=== PATIENT | male | born 1990 | race Hispanic/Latino ===

== ENCOUNTER 2018-12-12 18:38 | Emergency (ER) | payer SELFPAY ==
[~2018-12-12] VITALS: Ht 162.6 cm; Wt 75.0 kg
[2018-12-12] MEDS ORDERED: KEFLEX500 M1 PO (18:58)
[2018-12-12 19:10] VITALS: BP 143/83
== END 2018-12-12 19:10 | disposition home or self-care (01) | DRG 605 ==
LOC: ED 18:38
DX: S81.831A Puncture wound without foreign body, right lower leg, initial encounter (principal); W26.8XXA Contact with other sharp object(s), not elsewhere classified, initial encounter; Y93.11 Activity, swimming; Y92.828 Other wilderness area as the place of occurrence of the external cause

== ENCOUNTER 2020-04-26 13:12 | Observation (INO) | payer SELFPAY ==
[~2020-04-26] VITALS: Ht 167.6 cm; Wt 76.7 kg
[~2020-04-26 13:12] MED LIST: KEFLEX500 M1 PO
--- NOTE | 2020-04-26 13:45 | NUR ---
PT AMBULATED TO ROOM IN NO DISTRESS
--- NOTE | 2020-04-26 14:30 | NUR ---
PT RESTING ON STRETCHER AND ADVISED OF CONTINUED WAIT. CALL LIGHT WITHIN REACH
[2020-04-26 14:49] LABS: HEMOGLOBIN 16.5 g/dl (14.0-18.0); IMMATURE GRANULOCYTES 0.3 % (0.0-5.0); MEAN CELL VOLUME 88.6 fL CALC (80.0-100.0); MEAN CORPUSCULAR HGB 29.8 pG CALC (26.0-32.0); MEAN CORPUSCULAR HGB CONC 33.7 g/dL CAL (32.0-36.0); NEUT# 10.85 thou/uL (1.82-7.42); RED BLOOD COUNT 5.53 mill/uL (4.70-6.10); RED CELL DISTRI WIDTH 12.7 % (11.5-15.5)
[2020-04-26 15:01] LABS: ALBUMIN 5.1 g/dL (3.2-5.0); ALKALINE PHOSPHATASE 89 u/l (38-126); ANION GAP 15 (6-22 (CALC)); BILIRUBIN, TOTAL 0.8 mg/dL (0.0-1.4); BUN 15 mg/dL (9-20); BUN/CREATININE RATIO 19 (12-20 (CALC)); CARBON DIOXIDE 24 mmol/l (22-30); CHLORIDE 103 mmol/l (95-108); CREATININE 0.8 mg/dL (0.7-1.3); GFR > 60 ML/MIN (>=60 (CALC)); GFR FOR AFR.AMER. > 60 ML/MIN (>=60 (CALC)); POTASSIUM 3.8 mmol/l (3.5-5.1); SGOT/AST 28 u/l (17-59); SODIUM 139 mmol/l (137-146); TOTAL PROTEIN 8.5 g/dL (6.3-8.2)
[2020-04-26 15:24] LABS: URINE BLOOD DIPSTICK TRACE-INTACT (NEGATIVE); URINE COLOR YELLOW; URINE GLUCOSE - DIPSTICK NEGATIVE (NEGATIVE); URINE KETONE 15 mg/dL (NEGATIVE); URINE LEUK ESTERASE NEGATIVE (NEGATIVE); URINE NITRITE - DIPSTICK NEGATIVE (Negative); URINE PROTEIN - DIPSTICK TRACE mg/dL (NEG-TRACE); URINE SPECIFIC GRAVITY >=1.030; URINE UROBILINOGEN - DIPSTICK 0.2 E.U./dL (0.2)
[2020-04-26 15:26] LABS: URINE BILIRUBIN - DIPSTICK NEGATIVE (NEGATIVE)
--- NOTE | 2020-04-26 15:38 | NUR ---
PT ON STRETCHER WATCHING TV. DENIES ANY NEEDS. [facility]
--- NOTE | 2020-04-26 16:40 | NUR ---
FAMILY AT BEDSIDE IS CONCERNED ABOUT WAIT. PLAN OF CARE DISCUSSED AND BOTH VERBALIZED UNDERSTANDING. POLICIES DISCUSSED WITH BOTH
--- NOTE | 2020-04-26 17:50 | NUR ---
GAVE REPORT TO ABENA
--- NOTE | 2020-04-26 17:59 | NUR ---
REPORT REC FROM PRASHANTH SANDRA
[2020-04-26 18:14] VITALS: BP 139/59
--- NOTE | 2020-04-26 18:18 | NUR ---
PT TRANSPORTED TO [facility] SURG STABLE AND IN NO DISTRESS VIA W/C. CARE ASSUMED TO ABENA. Admission Note Report Given to: ABENA Transported by: X Wheelchair Stretcher Transported with: X Nurse Transporter X Patent IV O2 Turret Press Operator Location: ICU X MS2
--- NOTE | 2020-04-26 18:19 | NUR ---
PT ARRIVED TO [place] VIA WC ACCOMPANIED BY PRASHANTH SANDRA. NO DISTRESS NOTED. A&O X3. PT C/O OF PAIN 2/10 IN RLQ. CLEAR BREATH SOUNDS UPON AUSCULTATION. PT STATES HE HAS NOT BEEN IN CONTACT WITH ANYONE THAT HAS C19. NO ACTIVE S/S OF C19. PT STATES HE DID HAVE NAUSEA ABD VOMITING PRIOR TO ARRIVING. PT MEETS FLU VACCINE CRITERIA BUT REFUSES AT THIS TIME. ORIENTED PT TO ROOM. LOLIS HURST OFFERED BUT REFUSED. CALL LIGHT IN REACH. CONTINUE TO MONITOR.
--- NOTE | 2020-04-26 21:25 | NUR ---
NOTIFIED PT OF SURGEON COMING IN TO TAKE PT TO OR THIS EVENING. PT ACKNOWLEDGED AND AGREED. PT COVID BIOFIRE SWAB ADMINISTERED AND DELIVERED TO LAB. PT REPORTS PAIN 4/10 ON PAIN SCALE, DENIES ANY OTHER NEEDS AT THIS TIME. REMINDED PT NOT TO EAT OR DRINK, VERBALIZED UNDERSTANDING.
--- NOTE | 2020-04-26 22:00 | NUR ---
NOTIFIED PT THAT OR WOULD BE UP TO FLOOR TO GET HIM SOON AND ASKED HIM IF HE NEEDED ANYTHING. PT CONFIRMED THAT HE DID NOT HAVE ANY PIERCINGS OR JEWELERY. HE ASKED IF HIS GIRLFRIEND COULD COME UP FOR THE SURGERY, I INFORMED HIM THAT SHE COULD WAIT IN OR WAITING ROOM WITH MASK ON.
[2020-04-27] VITALS (9 sets, daily range): BP systolic 95–151; BP diastolic 50–93
--- NOTE | 2020-04-27 00:35 | NUR ---
PT ARRIVED BACK TO MED SURG ROOM VIA STRETCHER AND OR NURSES X2. PT APPEARS IN STABLE CONDITION, BUT IS SHAKING AND C/O PAIN 02/28.
--- NOTE | 2020-04-27 01:00 | NUR ---
PT AWAKE AND TALKING TO VISITOR AT BEDSIDE AND ASKING FOR ICE CHIPS/PROVIDED.
--- NOTE | 2020-04-27 01:38 | NUR ---
VISITOR NO LONGER AT BEDSIDE. PT APPEARS TO BE SLEEPING, NO S/O DISTRESS. V/S ARE STABLE AT THIS TIME. IVF RUNNING ORDERS PROVIDE.
--- NOTE | 2020-04-27 02:25 | NUR ---
PT SLEEPING, NO S/O DISTRESS, WILL CONTINUE TO MONITOR. V/S STABLE.
[2020-04-27 05:10] LABS: IMMATURE GRANULOCYTES 0.4 % (0.0-5.0); MEAN CELL VOLUME 89.8 fL CALC (80.0-100.0); MEAN CORPUSCULAR HGB 29.9 pG CALC (26.0-32.0); MEAN CORPUSCULAR HGB CONC 33.3 g/dL CAL (32.0-36.0); NEUT# 8.38 thou/uL (1.82-7.42); RED BLOOD COUNT 4.69 mill/uL (4.70-6.10); RED CELL DISTRI WIDTH 12.9 % (11.5-15.5)
[2020-04-27 05:20] LABS: HEMATOCRIT 42.1 % (39.0-50.0)
[2020-04-27 05:37] LABS: ANION GAP 11 (6-22 (CALC)); BUN 15 mg/dL (9-20); BUN/CREATININE RATIO 18 (12-20 (CALC)); CARBON DIOXIDE 24 mmol/l (22-30); CHLORIDE 107 mmol/l (95-108); CREATININE 0.8 mg/dL (0.7-1.3); GFR > 60 ML/MIN (>=60 (CALC)); GFR FOR AFR.AMER. > 60 ML/MIN (>=60 (CALC)); POTASSIUM 4.1 mmol/l (3.5-5.1); SODIUM 137 mmol/l (137-146)
--- NOTE | 2020-04-27 09:00 | NUR ---
PT IS AWAKE, ALERT, ORIENTED X 3. LUNGS CLEAR, RA. ABDOMEN WITH BANDAIDS X 4 FROM APPENDECTOMY, WNL. PT TOLERATED BREAKFAST TODAY WITHOUT NAUSEA OR VOMITING. PT SEEN BY DR MADRIGAL THIS AM, HOPES FOR DISCHARGE TODAY.
[2020-04-27] MEDS ORDERED: ULTRAM50 M1 PO (10:43)
--- NOTE | 2020-04-27 11:19 | NUR ---
PT HAS BEEN DISCHARGED TO HOME. PT VERBALIZED UNDERSTANDING OF DC INSTRUCTIONS, CHOSE TO AMBULATE TO LOBBY, LEAVES ACCOMPANIED BY HIS .
== END 2020-04-27 11:20 | disposition home or self-care (01) | DRG 343 ==
LOC: ED 13:12 → ED-I 17:03 → ED 17:24 → MS2 17:25
PROVIDERS: Student in an Organized Health Care Education/Training Program; ADMIT Internal Medicine; ATTEND Internal Medicine
PROC: 0DTJ4ZZ Resection of Appendix, Percutaneous Endoscopic Approach (ICD-10-PCS; principal; 2020-04-26)
DX: K35.30 Acute appendicitis with localized peritonitis, without perforation or gangrene (principal); F17.210 Nicotine dependence, cigarettes, uncomplicated; R76.8 Other specified abnormal immunological findings in serum; Z20.828 Contact with and (suspected) exposure to other viral communicable diseases
CPT/HCPCS: G0378; Q9967